=== PATIENT | female | born 2000 | race African-American/Black ===

== ENCOUNTER 2019-06-21 02:31 | Emergency (ER) | payer SELFPAY ==
[~2019-06-21] VITALS: Ht 167.6 cm; Wt 64.0 kg
[2019-06-21 03:06] LABS: CLARITY URINE CLOUDY (CLEAR); COLOR URINE YELLOW (YELLOW); KETONES URINE NEGATIVE (NEGATIVE); LEUKOCYTE ESTERASE URINE 2+ (NEGATIVE); NITRITE URINE NEGATIVE (NEGATIVE); OCCULT BLOOD URINE NEGATIVE (NEGATIVE); PROTEIN URINE NEGATIVE (NEGATIVE); SPECIFIC GRAVITY URINE 1.024 (1.005-1.030); UROBILINOGEN URINE 0.2 E.U./dL (0.2-1.0)
[2019-06-21 04:18] VITALS: BP 115/84
== END 2019-06-21 04:33 | disposition home or self-care (01) ==
LOC: ER 02:31
DX: O23.41 Unspecified infection of urinary tract in pregnancy, first trimester (principal); Z3A.08 8 weeks gestation of pregnancy
CPT/HCPCS: 81003; 81025; 99283